=== PATIENT | female | born 1985 ===

== ENCOUNTER 2017-03-21 21:10 | Emergency (ER) | payer MEDICAID ==
[2017-03-21 21:26] VITALS: BP 130/83; PULSE 76; RESP 16; TEMP 97.6; O2SAT 97
[2017-03-21] MEDS ORDERED: Sodium Chloride 0.9% 1,000 ML IV STA (22:04)
--- NOTE | 2017-03-21 22:07 | ED PDOC ---
HPI: General Adult Time Seen by Provider: 03/21/17 21:28 Chief Complaint (Nursing): GI Problem Chief Complaint (Provider): nausea History Per: Patient History/Exam Limitations: no limitations Onset/Duration Of Symptoms: Hrs Current Symptoms Are (Timing): Still Present Additional History Per: Patient Additional Complaint(s): 31 y/o female history of asthma presents with nausea x 8 hours. Associated "aches" and "burning" sensation in stomach. Patient states she took Effexor 75mg for the first time this morning; symptoms started a few hours after. Patient states she was on a Prednisone course (3 days injection, 2 days tablets ) last week for an asthma exacerbation and since then has been very anxious and unable to sleep at night, so when she saw her PMD Saturday she was prescribed the Effexor for the symptoms. Denies fever, headache, vomiting, chest pain, shortness of breath, palpitations, abdominal pain, changes in bowel movements, urinary symptoms. Past Medical History Reviewed: Historical Data, Nursing Documentation, Vital Signs Vital Signs: Last Vital Signs Temp 97.6 F 03/21/17 21:20 Pulse 76 03/21/17 21:20 Resp 16 03/21/17 21:20 BP 130/83 03/21/17 21:20 Pulse Ox 97 03/21/17 22:08 - Medical History PMH: Anxiety, Asthma, Bronchitis, Pneumonia Denies: HIV, Chronic Kidney Disease - Family History Family History: States: Unknown Family Hx - Home Medications Home Medications: Ambulatory Orders Medication Instructions Recorded Albuterol HFA [Ventolin HFA 90 2 puff INH BID 07/03/15 mcg/actuation (8 g)] Ipratropium/Albuterol Sulfate 3 ml INH Q4 07/03/15 [Iprat-Albut 0.5-3(2.5) mg/3 ml] ALPRAZolam [Xanax] 0.25 mg PO DAILY PRN #7 tab 07/05/15 Fluticasone/Salmeterol 100/50 1 puff INH Q12 #1 puff 07/05/15 [Advair Diskus 100/50] predniSONE [Prednisone] 50 mg PO DAILY #7 tab 07/05/15 Azithromycin [Zithromax] 250 mg PO DAILY #1 packet 07/18/16 Prednisone 50 mg PO DAILY #4 tablet 07/18/16 Promethazine HCl/Codeine 5 ml PO HS PRN #50 ml 07/18/16 [Prometh-Codein 6.25-10 mg/5 ml] Ondansetron ODT [Zofran ODT] 4 mg PO Q8 PRN #10 odt 03/22/17 - Allergies Allergies/Adverse Reactions: Allergies Allergy/AdvReac Type Severity Reaction Status Date / Time Penicillins Allergy RASH Verified 07/03/15 00:18 Review of Systems ROS Statement: Except As Marked, All Systems Reviewed And Found Negative Constitutional: Positive for: Weakness Gastrointestinal: Positive for: Nausea Physical Exam - Reviewed Nursing Documentation Reviewed: Yes Vital Signs Reviewed: Yes - Physical Exam Appears: Positive for: Well, Non-toxic, No Acute Distress Head Exam: Positive for: ATRAUMATIC, NORMAL INSPECTION, NORMOCEPHALIC Skin: Positive for: Normal Color Eye Exam: Positive for: Normal appearance ENT: Positive for: Normal ENT Inspection Cardiovascular/Chest: Positive for: Regular Rate, Rhythm Respiratory: Positive for: Normal Breath Sounds Gastrointestinal/Abdominal: Positive for: Normal Exam Back: Positive for: Normal Inspection Extremity: Positive for: Normal ROM Neurologic/Psych: Positive for: Alert, Oriented - Laboratory Results Result Diagrams: 03/21/17 22:22 03/21/17 22:22 - ECG O2 Sat by Pulse Oximetry: 97 - Progress ED Course And Treament: labs, urine, IV fluids, IV zofran On re-eval, patient states she is feeling better. TOlerated PO. Patient educated on findings, possibility of side effect of medication. Advised to follow up with PMD in am. Rx zofran given. Return to ED for worsening/concerning symptoms. Disposition - Clinical Impression Clinical Impression: Nausea - Patient ED Disposition Is Patient to be Admitted: No Counseled Patient/Family Regarding: Studies Performed, Diagnosis, Need For Followup, Rx Given - Disposition Disposition: Routine/Home Disposition Time: 00:56 Condition: IMPROVED Prescriptions: Ondansetron ODT [Zofran ODT] 4 mg PO Q8 PRN #10 odt PRN Reason: Nausea/Vomiting Instructions: Adverse Drug Reaction (ED)
[2017-03-21 22:29] LABS: BASO # 0.1 K/uL (0.0-0.2); BASO % 0.8 % (0.0-2.0); EOS # 0.2 K/uL (0.0-0.7); EOS % 1.4 % (0.0-4.0); HEMATOCRIT 40.7 % (34.0-47.0); LYMPH # 3.7 K/uL (1.0-4.3); LYMPH % 30.3 % (20.0-40.0); MEAN CELL VOLUME 80.9 fl (81.0-99.0); MEAN CORPUSCULAR HEMOGLOBIN 26.2 pg (27.0-31.0); MEAN CORPUSCULAR HGB CONC 32.4 g/dL (33.0-37.0); MEAN PLATELET VOLUME 9.4 fl (7.2-11.7); MONO # 0.8 K/uL (0.0-0.8); MONO % 6.6 % (0.0-10.0); NEUT # 7.5 K/uL (1.8-7.0); NEUT % 60.9 % (50.0-75.0); RED CELL DISTRIBUTION WIDTH 12.9 % (11.5-14.5); WHITE BLOOD COUNT 12.3 K/uL (4.8-10.8)
[2017-03-21 22:40] LABS: ALB/GLOB RATIO 1.5 (1.0-2.1); ALKALINE PHOSPHATASE 60 U/L (38-126); ALT/SGPT 30 U/L (9-52); AST/SGOT 20 U/L (14-36); BILIRUBIN,TOTAL 0.5 mg/dl (0.2-1.3); BLOOD UREA NITROGEN 12 mg/dl (7-17); CALCIUM 9.3 mg/dL (8.4-10.2); CARBON DIOXIDE 22 mmol/L (22-30); CHLORIDE 105 mmol/L (98-107); GFR AFRICAN-AMERICAN > 60; GLUCOSE,RANDOM 90 mg/dL (65-105); LIPASE 131 U/L (23-300); POTASSIUM 3.7 MMOL/L (3.6-5.0); SODIUM 140 mmol/l (132-148); TOTAL PROTEIN 7.1 G/DL (6.3-8.2)
== END 2017-03-22 01:19 | disposition home or self-care (01) ==
LOC: H.ER 21:10
DX: T88.7XXA Unspecified adverse effect of drug or medicament, initial encounter (principal)
CPT/HCPCS: 80053; 83690; 85025; 87804; 99283; J2405; J7040

== ENCOUNTER 2018-08-14 11:30 | Emergency (ER) | payer MEDICAID ==
[2018-08-14 12:16] VITALS: RESP 18; TEMP 98.3; O2SAT 98
--- NOTE | 2018-08-14 12:19 | ED PDOC ---
HPI: Abdomen Time Seen by Provider: 08/14/18 12:08 Chief Complaint (Nursing): Abdominal Pain History Per: Patient Onset/Duration Of Symptoms: Days (5) Current Symptoms Are (Timing): Intermittent Episodes Severity: Mild Location Of Pain/Discomfort: Epigastric Quality Of Discomfort: Unable To Describe Associated Symptoms: Nausea. denies: Fever, Vomiting, Diarrhea, Urinary Symptoms Exacerbating Factors: Other (NSAIDs) Alleviating Factors: None Additional Complaint(s): Epigastric discomfort x 5 days assoc with nausea but no vomiting or diarrhea. Occurred after taking Motrin. Denies fever or bloody stool. Past Medical History Vital Signs: Last Vital Signs Temp 98.3 F 08/14/18 12:10 Pulse 78 08/14/18 12:10 Resp 18 08/14/18 12:10 BP 122/77 08/14/18 12:10 Pulse Ox 98 08/14/18 12:10 - Medical History PMH: Anxiety, Asthma, Bronchitis, Pneumonia Denies: HIV, Chronic Kidney Disease - Family History Family History: States: Unknown Family Hx - Home Medications Home Medications: Ambulatory Orders Medication Instructions Recorded Albuterol HFA [Ventolin HFA 90 2 puff INH BID 07/03/15 mcg/actuation (8 g)] Ipratropium/Albuterol Sulfate 3 ml INH Q4 07/03/15 [Iprat-Albut 0.5-3(2.5) mg/3 ml] ALPRAZolam [Xanax] 0.25 mg PO DAILY PRN #7 tab 07/05/15 Fluticasone/Salmeterol 100/50 1 puff INH Q12 #1 puff 07/05/15 [Advair Diskus 100/50] predniSONE [Prednisone] 50 mg PO DAILY #7 tab 07/05/15 Azithromycin [Zithromax] 250 mg PO DAILY #1 packet 07/18/16 Prednisone 50 mg PO DAILY #4 tablet 07/18/16 Promethazine HCl/Codeine 5 ml PO HS PRN #50 ml 07/18/16 [Prometh-Codein 6.25-10 mg/5 ml] Ondansetron ODT [Zofran ODT] 4 mg PO Q8 PRN #10 odt 03/22/17 Benzonatate [Tessalon Perle] 100 mg PO Q8 PRN #30 capsule 04/12/17 Meloxicam [Mobic] 1 mg PO DAILY PRN #30 tab 04/12/17 Methocarbamol [Robaxin] 500 mg PO Q8 PRN #30 tab 04/12/17 Pantoprazole Sodium [Protonix] 40 mg PO DAILY #30 tablet. 08/14/18 - Allergies Allergies/Adverse Reactions: Allergies Allergy/AdvReac Type Severity Reaction Status Date / Time Penicillins Allergy RASH Verified 07/03/15 00:18 Review of Systems ROS Statement: Except As Marked, All Systems Reviewed And Found Negative Constitutional: Negative for: Fever Gastrointestinal: Positive for: Nausea, Abdominal Pain Physical Exam - Reviewed Nursing Documentation Reviewed: Yes Vital Signs Reviewed: Yes - Physical Exam Appears: Positive for: Non-toxic, No Acute Distress Head Exam: Positive for: ATRAUMATIC, NORMAL INSPECTION, NORMOCEPHALIC Skin: Positive for: Normal Color, Warm, DRY Eye Exam: Positive for: EOMI, Normal appearance, PERRL ENT: Positive for: Normal ENT Inspection Neck: Positive for: Normal, Painless ROM Cardiovascular/Chest: Positive for: Regular Rate, Rhythm Respiratory: Positive for: CNT, Normal Breath Sounds Gastrointestinal/Abdominal: Positive for: Soft, Tenderness (Mild epigastric tenderness) Back: Positive for: Normal Inspection Extremity: Positive for: Normal ROM Neurological/Psych: Positive for: Awake, Alert, Normal Tone - Laboratory Results Result Diagrams: 08/14/18 13:19 08/14/18 13:19 - ECG O2 Sat by Pulse Oximetry: 98 Disposition - Clinical Impression Clinical Impression: Gastritis - Patient ED Disposition Is Patient to be Admitted: No Counseled Patient/Family Regarding: Studies Performed, Diagnosis, Need For Followup, Rx Given - Disposition Referrals: Iron Montenegro MD [Staff Provider] - Disposition: Routine/Home Disposition Time: 13:50 Condition: FAIR Prescriptions: Pantoprazole Sodium [Protonix] 40 mg PO DAILY #30 tablet. Instructions: Gastritis Forms: [facility] (Bengali)
[2018-08-14 13:24] LABS: BASO % 0.7 % (0.0-2.0); EOS # 0.1 K/uL (0.0-0.7); LYMPH # 2.4 K/uL (1.0-4.3); LYMPH % 35.6 % (20.0-40.0); MEAN CELL VOLUME 81.2 fl (81.0-99.0); MEAN CORPUSCULAR HEMOGLOBIN 26.7 pg (27.0-31.0); MEAN CORPUSCULAR HGB CONC 32.9 g/dL (33.0-37.0); MEAN PLATELET VOLUME 9.6 fl (7.2-11.7); MONO # 0.4 K/uL (0.0-0.8); MONO % 5.8 % (0.0-10.0); NEUT # 3.8 K/uL (1.8-7.0); NEUT % 56.9 % (50.0-75.0); NRBC % 0.2 % (0.0-0.0); RBC 4.48 Mil/uL (3.80-5.20); WHITE BLOOD COUNT 6.7 K/uL (4.8-10.8)
[2018-08-14 13:45] LABS: ALB/GLOB RATIO 1.5 (1.0-2.1); ALBUMIN 4.3 g/dL (3.5-5.0); ALT/SGPT 23 U/L (9-52); AST/SGOT 18 U/L (14-36); BLOOD UREA NITROGEN 11 mg/dl (7-17); CALCIUM 9.7 mg/dL (8.4-10.2); GFR NON-AFRICAN AMERICAN > 60
[2018-08-14 14:12] VITALS: BP 120/70; PULSE 72
== END 2018-08-14 14:05 | disposition home or self-care (01) ==
LOC: H.ER 11:30
DX: K29.70 Gastritis, unspecified, without bleeding (principal); Z88.0 Allergy status to penicillin

== ENCOUNTER 2018-10-25 10:16 | Emergency (ER) | payer MEDICAID ==
[2018-10-25 10:26] VITALS: BMI 28.2
[2018-10-25 12:19] VITALS: BP 129/77; PULSE 85; RESP 16; TEMP 98.7; O2SAT 99
--- NOTE | 2018-10-25 12:34 | ED PDOC ---
HPI: Influenza Time Seen by Provider: 10/25/18 10:47 Chief Complaint: Cough, Cold, Congestion Chief Complaint (Provider): Cough, Cold, Congestion History Per: Patient Exam Limitations: no limitations Onset/Duration Of Symptoms: Days (x4) Sick Contacts (Context): Family Member(s) (6 y/o son) Additional complaint(s):: Patient is a 33 y/o female with an extensive PMHx who presents to the ED for evaluation of worsening allergies for the past four days. Patient complains of a cough, congestion, runny nose, and states she had lost her voice when she woke up this morning. Patient reports she has been taking Zyrtec with no relief. Patient denies fevers. Of note, patient is here with 6 y/o son who is demonstrating similar symptoms. PCP: Dr. Fran Mason Past Medical History Reviewed: Historical Data, Nursing Documentation, Vital Signs Vital Signs: Last Vital Signs Temp 98.7 F 10/25/18 12:19 Pulse 85 10/25/18 12:19 Resp 16 10/25/18 12:19 BP 129/77 10/25/18 12:19 Pulse Ox 99 10/25/18 12:19 Primary Care Provider: Fran Mason - Medical History PMH: Anxiety, Asthma, Bronchitis, Pneumonia Denies: HIV, Chronic Kidney Disease - Surgical History Surgical History: No Surg Hx - Family History Family History: States: Unknown Family Hx - Home Medications Home Medications: Ambulatory Orders Medication Instructions Recorded Albuterol HFA [Ventolin HFA 90 2 puff INH BID 07/03/15 mcg/actuation (8 g)] Ipratropium/Albuterol Sulfate 3 ml INH Q4 07/03/15 [Iprat-Albut 0.5-3(2.5) mg/3 ml] ALPRAZolam [Xanax] 0.25 mg PO DAILY PRN #7 tab 07/05/15 Fluticasone/Salmeterol 100/50 1 puff INH Q12 #1 puff 07/05/15 [Advair Diskus 100/50] predniSONE [Prednisone] 50 mg PO DAILY #7 tab 07/05/15 Azithromycin [Zithromax] 250 mg PO DAILY #1 packet 07/18/16 Prednisone 50 mg PO DAILY #4 tablet 07/18/16 Promethazine HCl/Codeine 5 ml PO HS PRN #50 ml 07/18/16 [Prometh-Codein 6.25-10 mg/5 ml] Ondansetron ODT [Zofran ODT] 4 mg PO Q8 PRN #10 odt 03/22/17 Benzonatate [Tessalon Perle] 100 mg PO Q8 PRN #30 capsule 04/12/17 Meloxicam [Mobic] 1 mg PO DAILY PRN #30 tab 04/12/17 Methocarbamol [Robaxin] 500 mg PO Q8 PRN #30 tab 04/12/17 Pantoprazole Sodium [Protonix] 40 mg PO DAILY #30 tablet. 08/14/18 Azithromycin [Z-Popeye] 250 mg PO DAILY #6 tab 10/25/18 Cetirizine HCl/Pseudoephedrine 1 each PO BID #60 tab.er.12h 10/25/18 [Zyrtec-D Tablet] Montelukast Sodium [Singulair] 10 mg PO DAILY #30 tablet 10/25/18 - Allergies Allergies/Adverse Reactions: Allergies Allergy/AdvReac Type Severity Reaction Status Date / Time Penicillins Allergy RASH Verified 07/03/15 00:18 Review of Systems ROS Statement: Except As Marked, All Systems Reviewed And Found Negative Constitutional: Negative for: Fever ENT: Positive for: Nose Discharge, Nose Congestion Respiratory: Positive for: Cough Physical Exam - Reviewed Nursing Documentation Reviewed: Yes Vital Signs Reviewed: Yes - Physical Exam Appears: Positive for: No Acute Distress Head Exam: Positive for: ATRAUMATIC, NORMAL INSPECTION, NORMOCEPHALIC Skin: Positive for: Normal Color, Warm, DRY Eye Exam: Positive for: EOMI, Normal appearance, PERRL ENT: Positive for: Pharynx Is (normal), Nasal Congestion, Other (yellow nasal discharge). Negative for: Pharyngeal Erythema, Tonsillar Exudate, Tonsillar Swelling Neck: Positive for: Normal, Painless ROM, Supple Cardiovascular/Chest: Positive for: Regular Rate, Rhythm. Negative for: Murmur Respiratory: Positive for: Normal Breath Sounds. Negative for: Respiratory Distress Gastrointestinal/Abdominal: Positive for: Normal Exam, Soft. Negative for: Tenderness Back: Positive for: Normal Inspection. Negative for: L CVA Tenderness, R CVA Tenderness Extremity: Positive for: Normal ROM. Negative for: Pedal Edema, Deformity Neurological/Psych: Positive for: Awake, Alert, Oriented (x3) Medical Decision Making Medical Decision Making: Time: 1114 Impression: Seasonal Allergies With URI Plan: Sudafed Tab 30 mg PO PredniSONE Tab 60 mg PO Time: 1215 Will prescribe Z-Popeye, Zyrtec, and Singulair. Patient advised to followup with primary. Scribe Attestation: Documented by Richard Thurman, acting as a scribe for Estefani Nolan MD. Provider Scribe Attestation: All medical record entries made by the Scribe were at my direction and personally dictated by me. I have reviewed the chart and agree that the record accurately reflects my personal performance of the history, physical exam, medical decision making, and the department course for this patient. I have also personally directed, reviewed, and agree with the discharge instructions and disposition. - ECG O2 Sat by Pulse Oximetry: 99 (RA) Pulse Ox Interpretation: Normal Disposition - Clinical Impression Clinical Impression: Upper respiratory infection, Seasonal allergies - Disposition Disposition Time: 12:15 Condition: STABLE Prescriptions: Azithromycin [Z-Popeye] 250 mg PO DAILY #6 tab Cetirizine HCl/Pseudoephedrine [Zyrtec-D Tablet] 1 each PO BID #60 tab.er.12h Montelukast Sodium [Singulair] 10 mg PO DAILY #30 tablet Forms: [employer] (Turkmen) Print Language: INDIAN
== END 2018-10-25 12:32 | disposition home or self-care (01) ==
LOC: H.ER 10:16
DX: J06.9 Acute upper respiratory infection, unspecified (principal); J30.2 Other seasonal allergic rhinitis